=== PATIENT | female | born 1980 | race Caucasian/White ===

== ENCOUNTER → 2017-10-10 | Outpatient (CLI) | payer OTHER ==
[~2017-10-10] MED LIST: BIRTH CONTROL; MULTIVITAMINS; NORCO 5-325 TA1 EACH PO; TL-FOL 500 CAP1 EACH
== END ==
LOC: M.ULTRA 07:30
DX: R59.0 Localized enlarged lymph nodes (principal)

== ENCOUNTER → 2018-09-25 | Outpatient (CLI) | payer OTHER | LOC: M.ULTRA 09-24 14:27 | DX: Z13.29 Encounter for screening for other suspected endocrine disorder (principal); E04.9 Nontoxic goiter, unspecified; R59.0 Localized enlarged lymph nodes ==